=== PATIENT | male | born 1950 | race Native Hawaiian/Other Pacific Islander ===

== ENCOUNTER 2020-10-23 12:20 | Outpatient (CLI) | payer OTHER, MEDICARE | END 2020-10-23 21:33 | disposition home or self-care (01) | LOC: RAD 12:20 | PROVIDERS: ATTEND Nurse Practitioner Family | DX: M54.89 Other dorsalgia (principal); M54.2 Cervicalgia ==

== ENCOUNTER 2021-07-03 10:23 | Outpatient (CLI) | payer OTHER, MEDICARE ==
[2021-07-03 11:04] LABS: PLATELET COUNT 87 K/uL (142-355)
[2021-07-03 11:05] LABS: POTASSIUM 4.2 mmol/L (3.6-5.2)
== END 2021-07-03 20:46 | disposition home or self-care (01) ==
LOC: LABW 10:23
PROVIDERS: ATTEND Nurse Practitioner Family
DX: R79.89 Other specified abnormal findings of blood chemistry (principal); D69.6 Thrombocytopenia, unspecified; R35.1 Nocturia
CPT/HCPCS: 36415; 80053; 84154; 85027